=== PATIENT | male | born 1975 | race African-American/Black ===

== ENCOUNTER 2021-04-14 13:38 | Emergency (ER) | payer MEDICAID ==
[~2021-04-14] VITALS: Ht 180.3 cm; Wt 70.0 kg
[2021-04-14 17:09] VITALS: BP 128/62
== END 2021-04-14 17:11 | disposition home or self-care (01) ==
LOC: ER 13:38
DX: U07.1 COVID-19 (principal)
CPT/HCPCS: 71045; 99284; C9803; U0003; U0005